=== PATIENT | male | born 1965 | race Caucasian/White ===

== ENCOUNTER 2017-11-16 17:21 | Emergency (ER) | payer OTHER ==
[~2017-11-16] VITALS: Ht 177.8 cm; Wt 72.6 kg
[~2017-11-16 17:21] MED LIST: ZES10
[2017-11-16 17:30] VITALS: Ht 177.8 cm; Wt 72.6 kg
[2017-11-16 18:19] VITALS: BP 175/97
== END 2017-11-16 18:20 | disposition home or self-care (01) ==
LOC: ED 17:21
DX: E11.649 Type 2 diabetes mellitus with hypoglycemia without coma (principal); I10 Essential (primary) hypertension

== ENCOUNTER 2019-07-19 12:24 | Inpatient (IN) | payer OTHER ==
[~2019-07-19] VITALS: Ht 182.9 cm; Wt 80.7 kg
[2019-07-19 13:11] VITALS: Ht 182.9 cm; Wt 80.7 kg
[2019-07-19 14:01] LABS: BASOPHIL % 0.2 % (0-2); PLATELET COUNT 262 x10^3mcL (130-400); RED CELL DISTRIBUTION WIDTH 13.7 % (11.5-14.5)
[2019-07-19] MEDS ORDERED: HYDRALAZINE HCL25 MG PO (14:11)
[2019-07-19] MEDS ORDERED: LOPRESSOR50 M1 PO (14:12)
[2019-07-19] MEDS ORDERED: HUMALOG100 UNIT/1 (14:13)
[2019-07-19] MEDS ORDERED: AMLODIPINE BESY10 M2 PO (14:13)
[2019-07-19 14:51] LABS: BILIRUBIN TOTAL 0.3 mg/dL (0.20-1.00); CARBON DIOXIDE 12.9 mmol/L (21-32); TOTAL PROTEIN, SERUM 7.6 g/dL (6.4-8.2)
[2019-07-19 14:56] LABS: ALBUMIN 3.3 g/dL (3.4-5.0); POTASSIUM SERUM 5.6 mmol/L (3.5-5.1)
[2019-07-19 14:57] LABS: CREATININE SERUM 5.2 mg/dL (0.7-1.3)
[2019-07-19 16:04] LABS: microscopic required? YES; urine erythrocyte TRACE (NEGATIVE)
[2019-07-19 18:06] VITALS: BP 176/99
[2019-07-19 18:14] LABS: AMPHETAMINE QUAL UR NONE DETECTED (See below)
[2019-07-19 20:00] VITALS: BP 183/95
[2019-07-19 20:51] LABS: CALCIUM 8.2 mg/dL (8.5-10.1); CARBON DIOXIDE 18.1 mmol/L (21-32); CREATININE SERUM 3.9 mg/dL (0.7-1.3); MAGNESIUM 2.1 mg/dL (1.8-2.4); PHOSPHOROUS 4.3 mg/dL (2.5-4.9); POTASSIUM SERUM 5.1 mmol/L (3.5-5.1)
[2019-07-19 23:23] VITALS: BP 132/78
[2019-07-20] VITALS (7 sets, daily range): BP systolic 140–186; BP diastolic 77–103
[2019-07-20 00:40] LABS: CALCIUM 8.1 mg/dL (8.5-10.1); CARBON DIOXIDE 22.2 mmol/L (21-32); CREATININE SERUM 3.9 mg/dL (0.7-1.3); MAGNESIUM 1.9 mg/dL (1.8-2.4); PHOSPHOROUS 4.5 mg/dL (2.5-4.9); POTASSIUM SERUM 4.1 mmol/L (3.5-5.1)
[2019-07-20 04:36] LABS: BASOPHIL % 0.3 % (0-2); PLATELET COUNT 256 x10^3mcL (130-400); RED CELL DISTRIBUTION WIDTH 13.7 % (11.5-14.5)
[2019-07-21 06:30] VITALS: BP 173/105
[2019-07-21 06:56] LABS: BASOPHIL % 0.5 % (0-2); PLATELET COUNT 237 x10^3mcL (130-400); RED CELL DISTRIBUTION WIDTH 14.5 % (11.5-14.5)
[2019-07-21 07:08] LABS: CALCIUM 7.8 mg/dL (8.5-10.1); CARBON DIOXIDE 22.4 mmol/L (21-32); CREATININE SERUM 3.5 mg/dL (0.7-1.3); POTASSIUM SERUM 4.2 mmol/L (3.5-5.1)
[2019-07-21 07:09] LABS: MAGNESIUM 1.5 mg/dL (1.8-2.4)
[2019-07-21 09:37] VITALS: BP 168/96
[2019-07-21 12:12] VITALS: BP 142/87
[2019-07-21 22:00] VITALS: BP 185/95
[2019-07-22 05:29] VITALS: BP 153/85
[2019-07-22 07:25] LABS: BASOPHIL % 0.4 % (0-2); PLATELET COUNT 216 x10^3mcL (130-400); RED CELL DISTRIBUTION WIDTH 13.6 % (11.5-14.5)
[2019-07-22 08:18] LABS: CALCIUM 7.6 mg/dL (8.5-10.1); CARBON DIOXIDE 24.5 mmol/L (21-32); CREATININE SERUM 3.6 mg/dL (0.7-1.3); MAGNESIUM 1.5 mg/dL (1.8-2.4); PHOSPHOROUS 3.4 mg/dL (2.5-4.9); POTASSIUM SERUM 4.1 mmol/L (3.5-5.1)
[2019-07-22 08:22] VITALS: BP 151/94
[2019-07-22 13:09] VITALS: BP 137/78
[2019-07-22 18:16] VITALS: BP 160/95
[2019-07-22 22:01] VITALS: BP 180/105
[2019-07-23 06:09] VITALS: BP 141/82
[2019-07-23 06:27] LABS: BASOPHIL % 0.3 % (0-2); PLATELET COUNT 213 x10^3mcL (130-400); RED CELL DISTRIBUTION WIDTH 13.3 % (11.5-14.5)
[2019-07-23 07:06] LABS: CALCIUM 7.7 mg/dL (8.5-10.1); CARBON DIOXIDE 20.8 mmol/L (21-32); CREATININE SERUM 3.6 mg/dL (0.7-1.3); MAGNESIUM 1.5 mg/dL (1.8-2.4); PHOSPHOROUS 3.7 mg/dL (2.5-4.9); POTASSIUM SERUM 4.9 mmol/L (3.5-5.1)
[2019-07-23 08:00] VITALS: BP 149/92
[2019-07-23 11:21] VITALS: BP 145/82
[2019-07-23 17:15] VITALS: BP 151/94
[2019-07-23 20:38] VITALS: BP 164/95
[2019-07-23 22:00] VITALS: BP 159/90
[2019-07-24 06:19] VITALS: BP 141/73
[2019-07-24 06:22] LABS: BASOPHIL % 0.5 % (0-2); PLATELET COUNT 231 x10^3mcL (130-400); RED CELL DISTRIBUTION WIDTH 13.6 % (11.5-14.5)
[2019-07-24 07:30] VITALS: BP 146/75
[2019-07-24 07:43] LABS: CALCIUM 7.7 mg/dL (8.5-10.1); CREATININE SERUM 3.7 mg/dL (0.7-1.3); MAGNESIUM 1.5 mg/dL (1.8-2.4); PHOSPHOROUS 3.6 mg/dL (2.5-4.9); POTASSIUM SERUM 4.2 mmol/L (3.5-5.1)
[2019-07-24 14:00] VITALS: BP 146/85
[2019-07-24 17:41] VITALS: BP 157/89
[2019-07-24 20:56] VITALS: BP 159/92
[2019-07-25 06:35] VITALS: BP 136/75
[2019-07-25 07:49] LABS: BASOPHIL % 0.4 % (0-2); PLATELET COUNT 248 x10^3mcL (130-400); RED CELL DISTRIBUTION WIDTH 13.3 % (11.5-14.5)
[2019-07-25 09:28] LABS: CALCIUM 7.6 mg/dL (8.5-10.1); CARBON DIOXIDE 22.7 mmol/L (21-32); CREATININE SERUM 3.8 mg/dL (0.7-1.3); MAGNESIUM 1.7 mg/dL (1.8-2.4); PHOSPHOROUS 3.9 mg/dL (2.5-4.9); POTASSIUM SERUM 5.1 mmol/L (3.5-5.1)
[2019-07-25 12:33] VITALS: BP 139/86
[2019-07-25 17:11] VITALS: BP 132/86
[2019-07-25] MEDS ORDERED: PLA200 PO (18:42)
[2019-07-25 20:05] VITALS: BP 138/81
[2019-07-26 06:34] VITALS: BP 150/80
[2019-07-26 08:41] VITALS: BP 148/87
[2019-07-26 10:30] VITALS: BP 148/87
[2019-07-26] MEDS ORDERED: NEU100 PO (10:49)
== END 2019-07-26 11:32 | disposition home or self-care (01) | DRG 177 ==
LOC: ED 12:24 → IC 15:23 → MU 15:23 → DU 15:23 → IC 15:42 → DU 07-20 05:54 → MU 07-23 11:09
PROVIDERS: Emergency Medicine; Internal Medicine; Internal Medicine Nephrology; ADMIT Internal Medicine
DX: U07.1 COVID-19 (principal); E11.10 Type 2 diabetes mellitus with ketoacidosis without coma; G93.41 Metabolic encephalopathy; N17.0 Acute kidney failure with tubular necrosis; J12.89 Other viral pneumonia; E87.1 Hypo-osmolality and hyponatremia; E44.1 Mild protein-calorie malnutrition; E87.5 Hyperkalemia; E87.8 Other disorders of electrolyte and fluid balance, not elsewhere classified; I10 Essential (primary) hypertension; G40.909 Epilepsy, unspecified, not intractable, without status epilepticus; Z68.27 Body mass index [BMI] 27.0-27.9, adult; Z79.84 Long term (current) use of oral hypoglycemic drugs; Z79.899 Other long term (current) drug therapy; J98.8 Other specified respiratory disorders
CPT/HCPCS: 36600; 82962; 83880; 87804; G0378; J0360; J0456; J0696; J1815; J2405; J3490; J7030; Q0092; U0002